=== PATIENT | female | born 1955 | race Caucasian/White ===

== ENCOUNTER 2016-03-26 16:59 | Emergency (ER) | payer BC, OTHER ==
[2016-03-26] MEDS ORDERED: ASPIRIN 81 MG CHEW TAB ONE (17:30)
== END 2016-03-26 22:01 | disposition home or self-care (01) ==
LOC: ER 16:59
DX: R07.2 Precordial pain (principal)
CPT/HCPCS: 36415; 71010; 80053; 82550; 82553; 83735; 84484; 85025; 85379; 85610; 85730; 93005